=== PATIENT | female | born 2000 ===

== ENCOUNTER 2020-11-17 09:11 | Outpatient (CLI) | payer OTHER, SELFPAY | END 2020-11-17 09:12 | disposition home or self-care (01) | PROVIDERS: PCP Internal Medicine; Visit Provider Internal Medicine | DX: Z01.10 Encounter for examination of ears and hearing without abnormal findings (principal) | CPT/HCPCS: 92557; 92567 ==

== ENCOUNTER 2021-12-29 09:27 | Outpatient (CLI) | payer OTHER, MEDICAID, SELFPAY | END 2021-12-29 09:28 | disposition home or self-care (01) | LOC: ANHBWCAUD 09:28 | PROVIDERS: PCP Internal Medicine; Visit Provider Internal Medicine | DX: Z02.0 Encounter for examination for admission to educational institution (principal) | CPT/HCPCS: 92557; 92567 ==